=== PATIENT | male | born 1935 | race Two or more races ===

== ENCOUNTER 2017-04-12 09:04 | Outpatient (CLI) | payer OTHER | END 2017-04-12 09:22 | disposition home or self-care (01) | LOC: NUCLEAR 09:04 | DX: M43.17 Spondylolisthesis, lumbosacral region (principal); M47.16 Other spondylosis with myelopathy, lumbar region; Z01.810 Encounter for preprocedural cardiovascular examination ==

== ENCOUNTER 2017-04-12 09:07 | Outpatient (CLI) | payer OTHER | END 2017-04-12 09:38 | disposition home or self-care (01) | LOC: RAD 09:07 | DX: M43.17 Spondylolisthesis, lumbosacral region (principal); M47.16 Other spondylosis with myelopathy, lumbar region; Z01.811 Encounter for preprocedural respiratory examination ==

== ENCOUNTER 2017-11-29 07:48 | Outpatient (CLI) | payer OTHER | END 2017-11-29 07:53 | disposition home or self-care (01) | LOC: RAD 07:48 | DX: M96.1 Postlaminectomy syndrome, not elsewhere classified (principal) ==

== ENCOUNTER → 2019-04-29 | Outpatient (CLI) | payer OTHER | END | disposition home or self-care (01) | LOC: RAD 07:35 | DX: M51.37 Other intervertebral disc degeneration, lumbosacral region (principal) ==

== ENCOUNTER → 2019-06-06 13:34 | Outpatient (CLI) | payer OTHER | END | disposition home or self-care (01) | LOC: LAB 13:34 | DX: N20.0 Calculus of kidney (principal) ==

== ENCOUNTER 2019-06-13 07:11 | Outpatient (CLI) | payer OTHER | END 2019-06-13 07:21 | disposition home or self-care (01) | LOC: TOM 07:11 | DX: I65.29 Occlusion and stenosis of unspecified carotid artery (principal); I11.9 Hypertensive heart disease without heart failure; E78.2 Mixed hyperlipidemia | CPT/HCPCS: 70498; Q9965 ==

== ENCOUNTER 2020-06-08 00:17 | Inpatient (IN) | payer OTHER ==
[~2020-06-08] VITALS: Ht 170.2 cm; Wt 83.5 kg
[2020-06-08] MEDS ORDERED: NEURONTIN300 MG PO (00:37)
[2020-06-08] MEDS ORDERED: SIMVASTATIN40 MG PO (00:37)
[2020-06-08] MEDS ORDERED: COZAAR25 MG PO (00:37)
[2020-06-08] MEDS ORDERED: CENTRUM SILVER1 EAC1 (15:04)
[2020-06-08] MEDS ORDERED: CILOSTAZOL50 MG (15:04)
[2020-06-08] MEDS ORDERED: MEGARED OMEGA-1 EAC1 (15:04)
[2020-06-08] MEDS ORDERED: ST. JOSEPH ASPI81 M2 (15:04)
[2020-06-08] MEDS ORDERED: GINKGO BILOBA120 M1 (15:04)
[2020-06-08] MEDS ORDERED: CLOPIDOGREL BIS75 MG (15:04)
[2020-06-08] MEDS ORDERED: PANADOL EXTRA500 MG (15:04)
[2020-06-08] MEDS ORDERED: TRIPLE ANTIBIOT28 G1 (15:05)
== END 2020-06-17 10:00 | disposition expired | DRG 336 ==
LOC: ER 00:17 → SURG 09:36 → O/R 06-17 09:57
PROVIDERS: ADMIT Surgery; ATTEND Surgery
PROC: BW21ZZZ Computerized Tomography (CT Scan) of Abdomen and Pelvis (ICD-10-PCS; 2020-06-08)
PROC: 0T9880Z Drainage of Bilateral Ureters with Drainage Device, Via Natural or Artificial Opening Endoscopic (ICD-10-PCS; 2020-06-16)
PROC: 0DN80ZZ Release Small Intestine, Open Approach (ICD-10-PCS; principal; 2020-06-16 08:30)
DX: K56.52 Intestinal adhesions [bands] with complete obstruction (principal); N17.8 Other acute kidney failure; I10 Essential (primary) hypertension; E86.0 Dehydration; Z20.822 Contact with and (suspected) exposure to COVID-19; Z85.038 Personal history of other malignant neoplasm of large intestine; Z08 Encounter for follow-up examination after completed treatment for malignant neoplasm